=== PATIENT | female | born 1940 | race Caucasian/White ===

== ENCOUNTER 2021-07-14 11:38 | Emergency (ER) | payer OTHER ==
[~2021-07-14] VITALS: Ht 149.9 cm; Wt 51.7 kg
[2021-07-14] MEDS ORDERED: SYNTHROID88 MCG PO (11:46)
== END 2021-07-14 16:50 | disposition home or self-care (01) ==
LOC: ER 11:38
DX: K52.9 Noninfective gastroenteritis and colitis, unspecified (principal); E03.9 Hypothyroidism, unspecified